=== PATIENT | male | born 1935 | race African-American/Black ===

== ENCOUNTER 2016-07-10 22:46 | Emergency (ER) | payer MEDICARE ==
[2016-07-10 23:41] LABS: ALT (SGPT) 10 U/L (8-55); AST (SGOT) 21 U/L (5-34); Alcohol 364 mg/dL (Less than 10); Alkaline Phosphatase 59 U/L (40-150); Anion Gap 21 mmol/L (10-20); BUN (Urea Nitrogen) 11 mg/dL (8.4-25.7); Bilirubin, Total 0.5 mg/dL (0.2-1.2); CK (CPK) 61 U/L (30-200); Calc. Creatinine Clearance 0 mL/min (70-130); Calcium 8.9 mg/dL (7.8-10.44); Carbon Dioxide 17 mmol/L (23-31); Chloride 110 mmol/L (98-107); Eosinophils 3 % (0-10); Estimated GFR-MDRD 76; Globulin 3.3 g/dL (2.4-3.5); Glucose 78 mg/dL (83-110); Hemoglobin 15.5 g/dL (14.0-18.0); Lymphocytes 69 % (21-51); MDiff Complete? YES; Mean Corpuscular HGB CONC 31.6 g/dL (32.0-36.0); Mean Corpuscular Hemoglobin 31.2 pg (27.0-31.0); Mean Corpuscular Volume 98.5 fl (80.0-94.0); Mean Platelet Volume 6.9 fL (7.4-10.4); Monocytes 6 % (0-10); Neutrophil 21 % (42-75); PLT Morphology Comment Appears Adequate; Platelet Count 160 thou/uL (130-400); Potassium 3.9 mmol/L (3.5-5.1); Protein, Total 7.3 g/dL (5.8-8.1); RBC Distribution Width 14.1 % (11.5-14.5); RBC Morphology Normal; Red Blood Cell (RBC) Count 4.97 mill/uL (4.70-6.10); Sodium 144 mmol/L (136-145)
== END 2016-07-10 23:50 ==
LOC: NAV ERS 22:46
DX: F10.129 Alcohol abuse with intoxication, unspecified (principal); I10 Essential (primary) hypertension; F03.90 Unspecified dementia, unspecified severity, without behavioral disturbance, psychotic disturbance, mood disturbance, and anxiety; F17.210 Nicotine dependence, cigarettes, uncomplicated
CPT/HCPCS: 80053; 80307; 82550; 85025; 99284

== ENCOUNTER 2016-09-29 09:15 | Emergency (ER) | payer MEDICARE ==
[2016-09-29 10:07] LABS: #Basophils 0.1 thou/uL (0.0-0.2); #Eosinphils 0.1 thou/uL (0.0-0.7); #Lymphocytes 1.7 thou/uL (1.20-3.40); #Monocytes 0.4 thou/uL (0.11-0.59); #Neutrophils 1.6 thou/uL (1.40-6.50); %Basophils 1.6 % (0.0-1.0); %Eosinophils 2.2 % (0.0-10.0); %Lymphocytes 43.4 % (21.0-51.0); %Monocytes 10.8 % (0.0-10.0); %Neutrophils 42.1 % (42.0-75.0); Hemoglobin 15.7 g/dL (14.0-18.0); Mean Corpuscular HGB CONC 31.3 g/dL (32.0-36.0); Mean Corpuscular Hemoglobin 30.3 pg (27.0-31.0); Mean Corpuscular Volume 96.8 fl (80.0-94.0); Mean Platelet Volume 6.6 fL (7.4-10.4); Platelet Count 165 thou/uL (130-400); RBC Distribution Width 14.6 % (11.5-14.5); Red Blood Cell (RBC) Count 5.19 mill/uL (4.70-6.10); White Blood Cell (WBC) Count 3.9 thou/uL (4.8-10.8)
[2016-09-29 10:22] LABS: CKMB 1.1 ng/mL (0-6.6); Troponin I 0.014 ng/mL (< 0.028)
[2016-09-29 10:25] LABS: ALT (SGPT) 9 U/L (8-55); AST (SGOT) 16 U/L (5-34); Albumin 3.8 g/dL (3.4-4.8); Alkaline Phosphatase 59 U/L (40-150); Anion Gap 17 mmol/L (10-20); BUN (Urea Nitrogen) 10 mg/dL (8.4-25.7); Bilirubin, Total 1.2 mg/dL (0.2-1.2); Calc. Creatinine Clearance 0 mL/min (70-130); Calcium 9.3 mg/dL (7.8-10.44); Carbon Dioxide 21 mmol/L (23-31); Chloride 106 mmol/L (98-107); Estimated GFR-MDRD 82; Globulin 2.9 g/dL (2.4-3.5); Glucose 101 mg/dL (83-110); Lipase 11 U/L (8-78); Potassium 4.3 mmol/L (3.5-5.1); Protein, Total 6.7 g/dL (5.8-8.1); Sodium 140 mmol/L (136-145)
--- NOTE | 2016-09-29 11:54 | RAD ---
CHEST 1 VIEW: Date: 09/29/16 HISTORY: Chest pain. COMPARISON: 08/11/15. FINDINGS: The cardiac silhouette is magnified by projection. Pulmonary vasculature is unremarkable. Mediastinu m is midline. There is no confluent air space consolidation or evidence of pneumothorax. Cardiac mon itor leads overlie the chest. IMPRESSION: No active cardiopulmonary abnormalities are demonstrated. POS: [facility]
--- NOTE | 2016-09-29 11:56 | CT ---
BRAIN CT WITHOUT IV CONTRAST: Date: 09/29/16 HISTORY: 81-year-old male with vertigo and chest pain which began this morning. Dizziness. Mild headache. COMPARISON: 08/11/15. FINDINGS: Marked atrophy and chronic white matter ischemic changes, which appear stable. No focal mass or midl ine shift. No intra or extra-axial hemorrhage. IMPRESSION: No significant acute findings. Stable from prior study. POS: [facility]
[2016-09-29] MEDS ORDERED: Aspirin 325 MG TAB ONE (12:11)
[2016-09-29] MEDS ORDERED: Nitroglycerin 2% Ointment 1 INCH/1 GM Packet ONE (12:11)
[2016-09-29 12:54] LABS: Bilirubin Negative (Negative); Blood, Urine Trace (Negative); Clarity Clear (Clear); Glucose, Urine (Dipstick) Negative (Negative); Leukocyte Negative (Negative); Nitrite Negative (Negative); Protein, Urine (Dipstick) Negative (Neg-Trace)
[2016-09-29 13:07] LABS: Bacteria/HPF Rare-Few HPF (None Seen); Squamous Epithelial 0-3 HPF (0-3); WBC/HPF 0-3 HPF (0-3)
== END 2016-09-29 12:55 | disposition short-term general hospital (02) ==
LOC: NAV ERS 09:15
DX: R42 Dizziness and giddiness (principal); I10 Essential (primary) hypertension; F03.90 Unspecified dementia, unspecified severity, without behavioral disturbance, psychotic disturbance, mood disturbance, and anxiety; F17.210 Nicotine dependence, cigarettes, uncomplicated
CPT/HCPCS: 70450; 71010; 80053; 81003; 81015; 82140; 82553; 83690; 83735; 83880; 84484; 85025; 85379; 93005; 96360

== ENCOUNTER 2016-10-10 18:07 | Observation (INO) | payer MEDICARE ==
--- NOTE | 2016-10-10 18:49 | RAD ---
PORTABLE SEMIUPRIGHT FRONTAL CHEST RADIOGRAPH 10/10/16 COMPARISON: 09/29/16 HISTORY: Shortness of breath, decreased mental status. FINDINGS: No pneumothorax, pleural effusion, focal consolidation, or alveolar edema. There is prominence and t ortuosity of the descending thoracic aorta. There is a subtle area of asymmetric density along the i nferior aspect of the scapula on the left overlying the posterior aspect of the 8th rib on the left, likely on the basis of scar or volume loss. Recommend followup nonemergent PA and lateral chest franki ging. IMPRESSION: No focal consolidation or alveolar edema. Mild focal opacity in left base for which followup nonemer gent PA and lateral chest imaging advised. Code T POS: [facility]
[2016-10-10 19:35] LABS: #Basophils 0.1 thou/uL (0.0-0.2); #Eosinphils 0.1 thou/uL (0.0-0.7); #Lymphocytes 1.7 thou/uL (1.20-3.40); #Monocytes 0.3 thou/uL (0.11-0.59); %Basophils 1.9 % (0.0-1.0); %Eosinophils 2.7 % (0.0-10.0); %Lymphocytes 53.2 % (21.0-51.0); %Monocytes 10.5 % (0.0-10.0); %Neutrophils 31.7 % (42.0-75.0); Mean Corpuscular HGB CONC 31.4 g/dL (32.0-36.0); Mean Corpuscular Hemoglobin 30.2 pg (27.0-31.0); Mean Corpuscular Volume 96.4 fl (80.0-94.0); Mean Platelet Volume 5.4 fL (7.4-10.4); Platelet Count 82 thou/uL (130-400); RBC Distribution Width 14.5 % (11.5-14.5); Red Blood Cell (RBC) Count 4.29 mill/uL (4.70-6.10); White Blood Cell (WBC) Count 3.2 thou/uL (4.8-10.8)
[2016-10-10 19:36] LABS: ALT (SGPT) 9 U/L (8-55); AST (SGOT) 12 U/L (5-34); Albumin 3.4 g/dL (3.4-4.8); Alcohol 288 mg/dL (Less than 10); Alkaline Phosphatase 45 U/L (40-150); Anion Gap 16 mmol/L (10-20); BUN (Urea Nitrogen) 10 mg/dL (8.4-25.7); Bilirubin, Total 0.5 mg/dL (0.2-1.2); Calc. Creatinine Clearance 0 mL/min (70-130); Calcium 8.1 mg/dL (7.8-10.44); Carbon Dioxide 19 mmol/L (23-31); Chloride 112 mmol/L (98-107); Estimated GFR-MDRD Greater than 90; Globulin 2.7 g/dL (2.4-3.5); Glucose 86 mg/dL (83-110); Potassium 3.4 mmol/L (3.5-5.1); Protein, Total 6.1 g/dL (5.8-8.1); Sodium 144 mmol/L (136-145)
[2016-10-10 19:37] LABS: Troponin I Less than 0.010 ng/mL (< 0.028)
[2016-10-10 19:56] LABS: Bilirubin Negative (Negative); Blood, Urine Trace (Negative); Clarity Clear (Clear); Glucose, Urine (Dipstick) Negative (Negative); Leukocyte Negative (Negative); Nitrite Negative (Negative); Protein, Urine (Dipstick) 30 mg/dL (Neg-Trace); pH, Urine 5.5 (5.0-9.0)
[2016-10-10 20:14] LABS: Amphetamine Not Detected (NotDetected); Barbiturates Screen Not Detected (NotDetected); Benzodiazepine Screen Detected (NotDetected); Cocaine Metabolite Screen Not Detected (NotDetected); Medtox Control Line Valid? VALID (VALID); Methadone Not Detected (NotDetected); Methamphetamine Not Detected (NotDetected); Opiate Screen Not Detected (NotDetected); Oxycodone Screen Not Detected (NotDetected); Phencyclidine (PCP) Not Detected (NotDetected); THC/Cannabinoid Screen Not Detected (NotDetected); Tricyclic Screen Not Detected (NotDetected)
[2016-10-10 20:15] LABS: Specific Gravity, Urine 1.021 (1.002-1.036)
[2016-10-10 20:22] LABS: Crystals/HPF RARE CA OXALATE HPF (Negative); RBC/HPF None Seen HPF (0-3); Squamous Epithelial 0-3 HPF (0-3); WBC/HPF 0-3 HPF (0-3)
[2016-10-10 23:06] VITALS: BMI 22.4
[2016-10-11] MEDS: Lactated Ringer's 1,000 ML IV SCH ×3 (04:04→20:30)
[2016-10-11 06:20] LABS: Alcohol Less than 10 mg/dL (Less than 10); Anion Gap 16 mmol/L (10-20); BUN (Urea Nitrogen) 10 mg/dL (8.4-25.7); Calc. Creatinine Clearance 67 mL/min (70-130); Calcium 8.3 mg/dL (7.8-10.44); Carbon Dioxide 22 mmol/L (23-31); Chloride 108 mmol/L (98-107); Estimated GFR-MDRD Greater than 90; Glucose 85 mg/dL (83-110); Potassium 3.7 mmol/L (3.5-5.1); Sodium 142 mmol/L (136-145)
[2016-10-11] MEDS ORDERED: Acetaminophen 325 MG TAB PO PRN (08:19)
[2016-10-11] MEDS ORDERED: Milk Of Magnesia 30 ML UDCUP PO PRN (08:19)
[2016-10-11] MEDS ORDERED: Lorazepam 1 MG TAB PO SCH (15:45)
[2016-10-12] MEDS: Lactated Ringer's 1,000 ML IV SCH (05:15)
--- NOTE | 2016-10-12 08:48 | HP ---
DATE OF ADMISSION: 10/10/2016 HISTORY OF PRESENT ILLNESS: The patient is an 81-year-old black male that was found on the grass ly ing outside. Ambulance was called. He was difficult to arouse and was brought to the ER for evalua tion. He was evaluated and found to be intoxicated, but apparently lives by himself. He had an alc ohol level of 288 and he had positives for benzodiazepines. Because there was no one to reach, he w as admitted to obs to make sure that he would somewhat sober up and someone can come pick him up. Inessa cevallos also has had some decreased mental status most likely because of benzos and alcohol use. PAST MEDICAL HISTORY: Reveals the patient has a history of hypertension and prostate cancer states he does not take any medicines for either one. PAST SURGICAL HISTORY: Reveals the patient has had an appendectomy many years ago, and a prostatect giles many years ago. The patient states he does not have a primary care doctor, does not really care for one. ALLERGIES: Reveal the patient has no known drug allergies. CURRENT MEDICATIONS: Patient states he does not take medications. FAMILY HISTORY: Reveals patient's father of coronary artery disease and alcohol abuse in his 9 0s. The patient's mother of hypertension, coronary artery disease, and alcohol abuse in her 90 s. Family history is positive for heart problems and alcohol abuse. SOCIAL HISTORY: Reveals patient lives by himself. He has a friend that comes to help him out at [facility] and is someone that watched over his mom when his mom was dying, her name is Deirdre. Noted kristian t he smokes 2 packs per day and has for many, many years. The patient states he drinks every day to a couple of pints usually. He states he is retired, does not remember exactly what he used to do. He was positive for benzodiazepines. Although, he denies using drugs. He is positive for benzodia zepines. REVIEW OF SYSTEMS: Reveal the patient states he has not much of an appetite. He is tired all the t jin. Denies seasonal allergies, states his hearing is good. Vision is not good. He has bilateral cataracts. He has occasional headaches, denies shortness of breath, dyspnea on exertion. Denies wh eezing but when he gets up and moves around, he does wheeze a little bit. Denies any chest pain, de nies claudication, palpitations. Denies any pain radiating to his arms. Denies nausea, vomiting, i ndigestion. Denies diarrhea, constipation, bloody stools. States he gets up once at night to urina te. Denies dysuria, hematuria, incontinence or frequency. He states he has little arthritis in his right knee, other than that he is not bothered with anything, he does not remember if he fell or wh y he lost consciousness or if he was actually conscious. States he remembers he drinks, he bought a fifth of alcohol, not sure what happened to it, if he drank it or if someone else drank it. His me flavia is poor. His concentration is typically pretty good, somewhere in the past, he may have a hist ory of dementia. He states he does not remember if the doctor ever told him that. PHYSICAL EXAMINATION: GENERAL: Reveals a well-developed, well-nourished, thin, black male, in no apparent distress at thi s time. HEENT: Reveals normocephalic, nontraumatic cranium. Pupils are round and reactive. Extraocular mo vements intact. Nose and throat are slightly dry. NECK: Supple, without masses, nodes or bruits. CHEST: Clear to auscultation. No rales, rhonchi, or wheezes are heard. HEART: Reveals a regular rate and rhythm without murmurs, gallops, or rubs. ABDOMEN: Soft, nontender without organomegaly, normal bowel sounds are noted. No rebound or guardi ng is noted. : Deferred. EXTREMITIES: Reveal no clubbing, cyanosis, or edema. NEUROLOGIC: Patient is oriented to person, place, time, and situation at this time. He does not se em depressed, anxious, flat, or agitated. LABORATORY AND X-RAY FINDINGS: Reveal last time when he came to the ER, white count 3.2, hemoglobin 13, hematocrit 41.4, platelet count 82,000. Patient's sodium is 142, potassium 3.4, chloride 102, carbon dioxide 19 with a BUN of 10, creatinine 0.94, GFR is greater than 90. Urinalysis revealed 30 protein, trace blood. Toxicology revealed benzodiazepines detected. Plasma alcohol was 88. This morning chemistry was done, which revealed a sodium 142, potassium 3.7, chloride 108, carbon dioxide 22. All those are improved. Anion gap 16, BUN is 10, creatinine is 0.92, GFR was greater than 90. Sugars 85. Plasma alcohol this morning is less than 10. ASSESSMENT: 1. Acute alcohol intoxication with alcohol level of 288. 2. Possible benzodiazepines. 3. Decreased mental status. 4. Most likely has chronic obstructive pulmonary disease. 5. Alcohol abuse. 6. Generalized weakness. 7. Most likely hypertensive. 8. Mentioned in the previous charts are possible dementia. PLAN: 1. Patient has been hydrated and we gave him thiamine, folic acid, multivitamin. 2. Patient is about 20 hours post-admit. The patient has no real indices for being admitted for fu rther acute care; therefore, the patient will be discharged. 3. I did extensive counseling with the patient on his alcohol abuse and he has benzodiazepines, whi ch he denies and his smoking. I made an illustration that he could save 300 dollars monthly by just stopping smoking and probably another 200-300 dollars by decreasing his alcohol. I recommend that he get a primary care physician that will help him do that. There is [facility] here i n [place] and there is [facility] which is on the loop which will adjust their fees according to t heir income. The patient is ready for discharge.
[2016-10-12 14:12] VITALS: TEMP 98
[2016-10-12 14:13] VITALS: BP 136/64
== END 2016-10-12 13:30 | disposition home or self-care (01) ==
LOC: NAV ERS 18:07 → NAV ACUTE 22:31
PROVIDERS: ADMIT Family Medicine; ATTEND Family Medicine
DX: F10.120 Alcohol abuse with intoxication, uncomplicated (principal); Y90.8 Blood alcohol level of 240 mg/100 ml or more; J44.9 Chronic obstructive pulmonary disease, unspecified; E86.0 Dehydration; I10 Essential (primary) hypertension; F17.210 Nicotine dependence, cigarettes, uncomplicated; Z85.46 Personal history of malignant neoplasm of prostate; F03.90 Unspecified dementia, unspecified severity, without behavioral disturbance, psychotic disturbance, mood disturbance, and anxiety; Z79.899 Other long term (current) drug therapy; R53.1 Weakness
CPT/HCPCS: 36415; 51701; 71010; 80048; 80053; 80306; 80307; 81003; 81015; 82553; 84484; 85025; 93005; 96360; 96361; G0378; J7120; J7620

== ENCOUNTER 2016-12-16 09:39 | Emergency (ER) | payer MEDICARE ==
--- NOTE | 2016-12-16 11:25 | RAD ---
CHEST TWO VIEW: HISTORY: Cough and congestion. COMPARISON: Chest one view from 10/10/2016. FINDINGS: There is mild thickening of the left major fissure. The lungs are slightly hyperinflated. No pneum othorax or effusion. There is a superior endplate compression fracture of the lower thoracic spine, felt likely to be at T11. IMPRESSION: 1. No acute intrathoracic abnormality. 2. Lung hyperinflation suggests obstructive pulmonary disease. POS: [facility]
== END 2016-12-16 11:08 | disposition home or self-care (01) ==
LOC: NAV ERS 09:39
DX: J20.9 Acute bronchitis, unspecified (principal); I10 Essential (primary) hypertension; F03.90 Unspecified dementia, unspecified severity, without behavioral disturbance, psychotic disturbance, mood disturbance, and anxiety; F17.210 Nicotine dependence, cigarettes, uncomplicated
CPT/HCPCS: 71020

== ENCOUNTER 2017-05-03 08:23 | Emergency (ER) | payer MEDICARE ==
--- NOTE | 2017-05-03 09:21 | RAD ---
RIGHT KNEE 4 VIEWS: Date: 05/03/17 HISTORY: Right knee pain. FINDINGS/IMPRESSION: Degenerative changes are present. No fracture, dislocation, or bony destruction identified. There is a joint effusion. POS: [facility]
[2017-05-03 10:03] LABS: Hemoglobin 15.4 g/dL (14.0-18.0); Mean Corpuscular HGB CONC 31.1 g/dL (32.0-36.0); Mean Corpuscular Hemoglobin 29.5 pg (27.0-31.0); Platelet Count 269 thou/uL (130-400); RBC Distribution Width 13.8 % (11.5-14.5); Red Blood Cell (RBC) Count 5.21 mill/uL (4.70-6.10); White Blood Cell (WBC) Count 5.6 thou/uL (4.8-10.8)
[2017-05-03 10:06] LABS: ALT (SGPT) 23 U/L (8-55); AST (SGOT) 38 U/L (5-34); Albumin 3.6 g/dL (3.4-4.8); Alkaline Phosphatase 56 U/L (40-150); Anion Gap 18 mmol/L (10-20); BUN (Urea Nitrogen) 17 mg/dL (8.4-25.7); Calc. Creatinine Clearance 0 mL/min (70-130); Calcium 10.5 mg/dL (7.8-10.44); Carbon Dioxide 26 mmol/L (23-31); Chloride 102 mmol/L (98-107); Estimated GFR-MDRD 73; Globulin 4.5 g/dL (2.4-3.5); Glucose 113 mg/dL (83-110); Potassium 4.2 mmol/L (3.5-5.1); Protein, Total 8.1 g/dL (5.8-8.1); Sodium 142 mmol/L (136-145); Uric Acid 7.3 mg/dL (3.5-7.2)
[2017-05-03 10:14] LABS: Band 1 % (5-11); Lymphocytes 21 % (21-51); MDiff Complete? YES; Monocytes 8 % (0-10); Neutrophil 69 % (42-75); PLT Morphology Comment Appears Adequate; RBC Morphology Normal
[2017-05-03 10:32] LABS: Bilirubin Small (Negative); Blood, Urine Moderate (Negative); Clarity Clear (Clear); Glucose, Urine (Dipstick) Negative (Negative); Leukocyte Trace (Negative); Nitrite Positive (Negative); Protein, Urine (Dipstick) 30 mg/dL (Neg-Trace); Specific Gravity, Urine 1.025 (1.005-1.030); pH, Urine 5.5 (5.0-9.0)
[2017-05-03 10:46] LABS: Bacteria/HPF Rare-Few HPF (None Seen); RBC/HPF 0-3 HPF (0-3); Squamous Epithelial 0-3 HPF (0-3)
[2017-05-03 18:31] LABS: BF Color Yellow; Body Fluid Source SYNOVIAL FLUID; Clarity Cloudy/Turbid (Clear); Tube # 1
[2017-05-03 18:32] LABS: RBC Count-Automated 40000 /cumm; WBC/NonHematic-Auto 32800 /cumm
[2017-05-03 18:45] LABS: Synovial Fluid, Protein 4.2 g/dL (Not Available); Synovial Fluid, Uric Acid 7.7 mg/dL (Not Available)
[2017-05-03 18:59] LABS: BF Segmented Neutrophils 97 %; Cell Count Non Hematic 3 %
== END 2017-05-03 11:28 | disposition short-term general hospital (02) ==
LOC: NAV ERS 08:23
DX: M13.161 Monoarthritis, not elsewhere classified, right knee (principal); G89.29 Other chronic pain; I10 Essential (primary) hypertension; F03.90 Unspecified dementia, unspecified severity, without behavioral disturbance, psychotic disturbance, mood disturbance, and anxiety; F17.210 Nicotine dependence, cigarettes, uncomplicated
CPT/HCPCS: 20610; 36415; 80053; 81003; 81015; 82945; 83615; 84157; 84550; 84560; 85025; 85060; 87040; 87070; 87205; 89051; 89060

== ENCOUNTER 2017-09-24 16:22 | Emergency (ER) | payer MEDICARE ==
[~2017-09-24 16:22] MED LIST: Iopamidol 370 76% 100 ML VIAL ONE
[2017-09-24] MEDS ORDERED: Albuterol Sulfate 2.5 mg/3 ml Neb ONE (16:59)
[2017-09-24 17:20] LABS: #Basophils 0.1 thou/uL (0.0-0.2); #Eosinphils 0.1 thou/uL (0.0-0.7); #Lymphocytes 2.2 thou/uL (1.20-3.40); #Monocytes 0.4 thou/uL (0.11-0.59); #Neutrophils 1.1 thou/uL (1.40-6.50); %Basophils 1.5 % (0.0-1.0); %Eosinophils 3.2 % (0.0-10.0); %Lymphocytes 56.6 % (21.0-51.0); %Monocytes 10.3 % (0.0-10.0); %Neutrophils 28.4 % (42.0-75.0); Hemoglobin 15.4 g/dL (14.0-18.0); Mean Corpuscular HGB CONC 30.5 g/dL (32.0-36.0); Mean Corpuscular Hemoglobin 28.1 pg (27.0-31.0); Mean Corpuscular Volume 92.1 fL (78.0-98.0); Mean Platelet Volume 6.8 fL (7.4-10.4); Platelet Count 217 thou/uL (130-400); RBC Distribution Width 13.6 % (11.5-14.5); Red Blood Cell (RBC) Count 5.46 mill/uL (4.70-6.10); White Blood Cell (WBC) Count 3.9 thou/uL (4.8-10.8)
--- NOTE | 2017-09-24 17:21 | RAD ---
SINGLE VIEW OF THE CHEST: 09/24/17 COMPARISON: 10/10/16 HISTORY: Shortness of breath that began two to three days ago. FINDINGS: Single view of the chest shows a normal sized cardiomediastinal silhouette. There is no evidence of c onsolidation, mass, or pleural effusion. The bones are unremarkable. IMPRESSION: No evidence of acute cardiopulmonary disease. POS: [facility]
[2017-09-24 17:24] LABS: ALT (SGPT) 8 U/L (8-55); AST (SGOT) 13 U/L (5-34); Albumin 3.9 g/dL (3.4-4.8); Alkaline Phosphatase 61 U/L (40-150); Anion Gap 19 mmol/L (10-20); BUN (Urea Nitrogen) 12 mg/dL (8.4-25.7); Bilirubin, Total 0.5 mg/dL (0.2-1.2); Calc. Creatinine Clearance 0 mL/min (70-130); Calcium 9.3 mg/dL (7.8-10.44); Carbon Dioxide 19 mmol/L (23-31); Chloride 107 mmol/L (98-107); Estimated GFR-MDRD 81; Globulin 2.8 g/dL (2.4-3.5); Glucose 87 mg/dL (83-110); Potassium 3.7 mmol/L (3.5-5.1); Protein, Total 6.7 g/dL (5.8-8.1); Sodium 141 mmol/L (136-145)
[2017-09-24 17:25] LABS: CKMB 0.7 ng/mL (0-6.6); Troponin I Less than 0.010 ng/mL (< 0.028)
[2017-09-24] MEDS ORDERED: predniSONE 20 MG TAB ONE (19:25)
--- NOTE | 2017-09-24 19:45 | CT ---
CT ANGIOGRAM THORAX WITH IV CONTRAST AND 3D RECONSTRUCTIONS: 09/24/17 HISTORY: Dyspnea and shortness of breath which started two to three days ago. COMPARISON: None available. FINDINGS: There are no filling defects seen in the pulmonary arteries to suggest a pulmonary embolus. Vascular calcifications are seen in the coronary arteries and at the aortic arch. The thoracic aorta is normal in caliber without evidence of an aortic dissection. Mediastinal structures have a normal CT appearance. There is mass-like prominence of the posterior as pect right lung apex with multiple linear densities also seen. this finding was also seen on prior CT cervical spine in [address] thoracic spine in 2013, is likely related to prominent asymme tric pleural and parenchymal scarring given stability over this period of time. The lungs are otherwise clear. No discrete pulmonary nodule, mass or pleural effusion is seen. There are several loops of bowel seen anterior and lateral to the right hepatic lobe as well as anterior to the dome of the liver. A subcentimeter too small to characterize hypodense lesion is seen in the lat eral segment of the left hepatic lobe. Degenerative changes are seen in the spine. IMPRESSION: 1. No CT evidence of a pulmonary embolus. 2. Asymmetric pleural and parenchymal scarring right lung apex. POS: [facility]
== END 2017-09-24 19:43 | disposition home or self-care (01) ==
LOC: NAV ERS 16:22
DX: J44.1 Chronic obstructive pulmonary disease with (acute) exacerbation (principal); R07.89 Other chest pain; F03.90 Unspecified dementia, unspecified severity, without behavioral disturbance, psychotic disturbance, mood disturbance, and anxiety; I10 Essential (primary) hypertension; F17.210 Nicotine dependence, cigarettes, uncomplicated
CPT/HCPCS: 71045; 71275; 80053; 82553; 83735; 83880; 84484; 85025; 85379; 93005; 94640; 94760; J7506; J7611

== ENCOUNTER 2017-11-11 10:32 | Emergency (ER) | payer MEDICARE ==
[2017-11-11] MEDS ORDERED: Acetaminophen 500 MG TAB ONE (11:43)
--- NOTE | 2017-11-11 11:57 | RAD ---
RIGHT RIBS 2 VIEWS CHEST 1 VIEW: Date: 11/11/17 HISTORY: 82-year-old male with history of right rib injury following a fall 2 weeks ago. FINDINGS: Views of the right ribs and chest 1 view demonstrates no evidence for acute rib fracture. There is so me respiratory motion artifact. No pneumothorax or pleural effusion. IMPRESSION: No pneumothorax or pleural effusion. No overt acute rib fracture. POS: [facility]
== END 2017-11-11 11:53 | disposition home or self-care (01) ==
LOC: NAV ERS 10:32
DX: S20.211A Contusion of right front wall of thorax, initial encounter (principal); I10 Essential (primary) hypertension; F17.210 Nicotine dependence, cigarettes, uncomplicated; F03.90 Unspecified dementia, unspecified severity, without behavioral disturbance, psychotic disturbance, mood disturbance, and anxiety; Z85.46 Personal history of malignant neoplasm of prostate; W18.30XA Fall on same level, unspecified, initial encounter
CPT/HCPCS: 93005

== ENCOUNTER 2018-12-01 16:15 | Emergency (ER) | payer MEDICARE ==
--- NOTE | 2018-12-01 17:03 | RAD ---
SINGLE VIEW OF THE CHEST: 12/01/18 COMPARISON: 09/24/17 HISTORY: Chest pain and dizziness for one hour. FINDINGS: Single view of the chest shows a normal sized cardiomediastinal silhouette. There is no evidence of c onsolidation, mass, or pleural effusion. The bones are unremarkable. IMPRESSION: No evidence of acute cardiopulmonary disease. POS: [facility]
[2018-12-01 17:06] LABS: ALT (SGPT) 14 U/L (8-55); AST (SGOT) 14 U/L (5-34); Albumin 4.5 g/dL (3.4-4.8); Alkaline Phosphatase 64 U/L (40-110); Anion Gap 18 mmol/L (10-20); BUN (Urea Nitrogen) 17 mg/dL (8.4-25.7); Bilirubin, Total 0.5 mg/dL (0.2-1.2); CK (CPK) 21 U/L (30-200); Calc. Creatinine Clearance 0 mL/min (70-130); Calcium 9.8 mg/dL (7.8-10.44); Carbon Dioxide 23 mmol/L (23-31); Chloride 106 mmol/L (98-107); Estimated GFR-MDRD 60; Globulin 3.2 g/dL (2.4-3.5); Glucose 85 mg/dL (83-110); Potassium 3.8 mmol/L (3.5-5.1); Protein, Total 7.7 g/dL (5.8-8.1); Sodium 143 mmol/L (136-145)
[2018-12-01 17:17] LABS: Eosinophils 2 % (0-10); Hemoglobin 16.2 g/dL (14.0-18.0); Lymphocytes 65 % (21-51); MDiff Complete? YES; Mean Corpuscular HGB CONC 30.2 g/dL (32.0-36.0); Mean Corpuscular Hemoglobin 27.4 pg (27.0-31.0); Mean Corpuscular Volume 90.8 fL (78.0-98.0); Mean Platelet Volume 6.4 fL (7.4-10.4); Monocytes 3 % (0-10); Neutrophil 30 % (42-75); Platelet Count 184 thou/uL (130-400); Platelet Morphology Comment Appears Adequate; RBC Distribution Width 14.6 % (11.5-14.5); RBC Morphology Normal; Red Blood Cell (RBC) Count 5.89 mill/uL (4.70-6.10); White Blood Cell (WBC) Count 4.6 thou/uL (4.8-10.8)
[2018-12-01] MEDS ORDERED: Aspirin Chewable 81 MG TAB ONE (18:47)
== END 2018-12-01 19:33 | disposition short-term general hospital (02) ==
LOC: NAV ERS 16:15
DX: R07.9 Chest pain, unspecified (principal); F10.129 Alcohol abuse with intoxication, unspecified; F03.90 Unspecified dementia, unspecified severity, without behavioral disturbance, psychotic disturbance, mood disturbance, and anxiety; I10 Essential (primary) hypertension; F17.210 Nicotine dependence, cigarettes, uncomplicated; Z85.46 Personal history of malignant neoplasm of prostate
CPT/HCPCS: 71045; 80053; 80307; 82550; 83880; 84484; 85025; 93005; J7620

== ENCOUNTER 2019-05-08 10:39 | Emergency (ER) | payer MEDICARE ==
--- NOTE | 2019-05-08 11:53 | RAD ---
LUMBAR SPINE 3 VIEWS: Date: 05/08/2019 HISTORY: Back pain. No comparison available. FINDINGS: There is mild compression of the L1 vertebra with superior end plate compression and mild anterior we dging. Posterior height is preserved. Posterior alignment is maintained. The other lumbar vertebra maintain height and alignment. There is loss of disc space at L5-S1. Degene rative changes are noted with facet hypertrophy. IMPRESSION: Mild compression deformity at L1 which is age-indeterminate. POS: [facility]
--- NOTE | 2019-05-08 12:31 | CT ---
CT Lumbar Spine WO Con History: Pain Comparison: Radiograph same day Findings: The aortic contour is nonaneurysmal. No retroperitoneal periaortic adenopathy. No hydroneph rosis. Incomplete burst fracture L1 with fracture involving the anterior and posterior margins of the verteb ral body with 20% anterior height loss. There is sclerosis of the superior endplate. No significant retropulsion. There is small volume hemorrhage around the fracture in the anterior and lateral parasp inal soft tissues indicating relative acuity. Remainder the lumbar spine is without acute fracture. Advanced degenerative disc space height loss at L5/S1 with moderate facet arthrosis and 3 mm anterolisthesis. Impression: Relatively acute-appearing L1 incomplete burst compression deformity with approximately 2 0% anterior height loss.
[2019-05-08] MEDS ORDERED: Acetaminophen/Codeine 30-300mg Tablet ONE (12:57)
== END 2019-05-08 13:06 | disposition home or self-care (01) ==
LOC: NAV ERS 10:39
DX: S32.019A Unspecified fracture of first lumbar vertebra, initial encounter for closed fracture (principal); F03.90 Unspecified dementia, unspecified severity, without behavioral disturbance, psychotic disturbance, mood disturbance, and anxiety; I10 Essential (primary) hypertension; F17.210 Nicotine dependence, cigarettes, uncomplicated; W06.XXXA Fall from bed, initial encounter
CPT/HCPCS: 72100; 72131

== ENCOUNTER 2020-07-21 22:00 | Emergency (ER) | payer MEDICARE ==
[2020-07-21 22:42] LABS: Hemoglobin 14.9 g/dL (14.0-18.0); Mean Corpuscular HGB CONC 28.7 g/dL (32.0-36.0); Mean Corpuscular Hemoglobin 25.9 pg (27.0-31.0); Mean Corpuscular Volume 90.3 fL (78.0-98.0); Mean Platelet Volume 7.7 fL (7.4-10.4); Platelet Count 184 thou/uL (130-400); RBC Distribution Width 14.9 % (11.5-14.5); Red Blood Cell (RBC) Count 5.74 mill/uL (4.70-6.10); White Blood Cell (WBC) Count 4.1 thou/uL (4.8-10.8)
[2020-07-21 22:45] LABS: #Basophils 0.1 thou/uL (0.0-0.2); #Eosinphils 0.1 thou/uL (0.0-0.7); #Lymphocytes 1.9 thou/uL (1.20-3.40); #Monocytes 0.3 thou/uL (0.11-0.59); #Neutrophils 1.6 thou/uL (1.40-6.50); %Basophils 1.2 % (0.0-1.0); %Eosinophils 2.8 % (0.0-10.0); %Lymphocytes 47.3 % (21.0-51.0); %Monocytes 8.3 % (0.0-10.0); %Neutrophils 40.4 % (42.0-75.0); Platelet Morphology Comment Appears Adequate; RBC Morphology Normal
[2020-07-21 22:53] LABS: AST (SGOT) 12 U/L (5-34); Albumin 4.1 g/dL (3.4-4.8); Alkaline Phosphatase 72 U/L (40-110); Anion Gap 14 mmol/L (10-20); BUN (Urea Nitrogen) 20 mg/dL (8.4-25.7); Bilirubin, Total 0.6 mg/dL (0.2-1.2); Calc. Creatinine Clearance 0 mL/min (70-130); Calcium 9.1 mg/dL (7.8-10.44); Carbon Dioxide 25 mmol/L (23-31); Chloride 106 mmol/L (98-107); Globulin 3.5 g/dL (2.4-3.5); Glucose 105 mg/dL (83-110); Potassium 4.3 mmol/L (3.5-5.1); Protein, Total 7.6 g/dL (5.8-8.1); Sodium 141 mmol/L (136-145)
[2020-07-21 22:54] LABS: ALT (SGPT) 11 U/L (8-55); Lipase 24 U/L (8-78)
[2020-07-22] MEDS ORDERED: Aspirin Chewable 81 MG TAB ONE (00:50)
== END 2020-07-22 02:04 | disposition short-term general hospital (02) ==
LOC: NAV ERS 22:00
DX: R07.81 Pleurodynia (principal); I10 Essential (primary) hypertension; Z87.891 Personal history of nicotine dependence
CPT/HCPCS: 71045; 80053; 83690; 83880; 84484; 85025; 85379; 93005; J7620

== ENCOUNTER 2021-03-25 17:35 | Emergency (ER) | payer MEDICARE ==
[2021-03-25 18:37] LABS: ALT (SGPT) 9 U/L (8-55); AST (SGOT) 13 U/L (5-34); Albumin 3.3 g/dL (3.4-4.8); Alkaline Phosphatase 38 U/L (40-110); Anion Gap 13 mmol/L (10-20); BUN (Urea Nitrogen) 16 mg/dL (8.4-25.7); Bilirubin, Total 0.5 mg/dL (0.2-1.2); Calc. Creatinine Clearance 0 mL/min (70-130); Calcium 7.9 mg/dL (7.8-10.44); Carbon Dioxide 19 mmol/L (23-31); Chloride 110 mmol/L (98-107); Globulin 2.5 g/dL (2.4-3.5); Glucose 125 mg/dL (83-110); Potassium 3.4 mmol/L (3.5-5.1); Protein, Total 5.8 g/dL (5.8-8.1); Sodium 139 mmol/L (136-145)
[2021-03-25 18:38] LABS: Troponin I Less than 0.010 ng/mL (< 0.028)
[2021-03-25 18:40] LABS: #Lymphocytes 1.4 thou/uL (1.20-3.40); #Monocytes 0.6 thou/uL (0.11-0.59); #Neutrophils 3.9 thou/uL (1.40-6.50); %Basophils 0.7 % (0.0-1.0); %Lymphocytes 23.8 % (21.0-51.0); %Monocytes 9.7 % (0.0-10.0); %Neutrophils 65.7 % (42.0-75.0); Hemoglobin 11.9 g/dL (14.0-18.0); Mean Corpuscular HGB CONC 30.4 g/dL (32.0-36.0); Mean Corpuscular Hemoglobin 26.3 pg (27.0-31.0); Mean Corpuscular Volume 86.6 fL (78.0-98.0); Mean Platelet Volume 7.2 fL (7.4-10.4); Platelet Count 118 thou/uL (130-400); Red Blood Cell (RBC) Count 4.54 mill/uL (4.70-6.10); White Blood Cell (WBC) Count 5.9 thou/uL (4.8-10.8)
[2021-03-25] MEDS ORDERED: Sodium Chloride 0.9% 500 ML ONE (18:52)
[2021-03-25 20:23] LABS: Bilirubin Negative (Negative); Blood, Urine Trace (Negative); Glucose, Urine (Dipstick) Negative (Negative); Ketone, Urine Negative (Negative); Leukocyte Negative (Negative); Nitrite Negative (Negative); Protein, Urine (Dipstick) 30 mg/dL (Neg-Trace); Urobilinogen 0.2 mg/dL (Less than 2)
[2021-03-25 20:27] LABS: Clarity SL HAZY (Clear)
[2021-03-25 20:33] LABS: RBC/HPF 0-3 HPF (0-3); Specific Gravity, Urine 1.023 (1.002-1.036)
[2021-03-25 21:20] LABS: Lactic Acid 1.5 mmol/L (0.5-2.2)
[2021-03-26 16:22] LABS: SARS-CoV-2 PCR by NAA DETECTED (NotDetected)
== END 2021-03-25 21:30 | disposition home or self-care (01) ==
LOC: NAV ERS 17:35
DX: U07.1 COVID-19 (principal); I10 Essential (primary) hypertension; F17.210 Nicotine dependence, cigarettes, uncomplicated; W19.XXXA Unspecified fall, initial encounter
CPT/HCPCS: 70450; 71045; 72125; 74176; 80053; 83605; 83880; 84484; 85025; 85379; 87804 ×2; 93005; U0003; U0005; 51701; 81003; 81015; J7030

== ENCOUNTER 2021-11-22 09:58 | Emergency (ER) | payer MEDICARE, OTHER ==
[2021-11-22 11:10] LABS: Hemoglobin 12.9 g/dL (14.0-18.0); Mean Corpuscular HGB CONC 28.9 g/dL (32.0-36.0); Mean Corpuscular Hemoglobin 25.3 pg (27.0-31.0); Mean Corpuscular Volume 87.3 fL (78.0-98.0); Mean Platelet Volume 7.5 fL (7.4-10.4); Platelet Count 186 thou/uL (130-400); RBC Distribution Width 16.2 % (11.5-14.5); Red Blood Cell (RBC) Count 5.11 mill/uL (4.70-6.10); White Blood Cell (WBC) Count 4.1 thou/uL (4.8-10.8)
[2021-11-22 11:11] LABS: MDiff Complete? YES
[2021-11-22 11:12] LABS: Eosinophils 1 % (0-10); Lymphocytes 44 % (21-51); Monocytes 5 % (0-10); Neutrophil 50 % (42-75); Platelet Morphology Comment Appears Adequate
[2021-11-22 11:48] LABS: ALT (SGPT) 10 U/L (8-55); AST (SGOT) 12 U/L (5-34); Albumin 4.2 g/dL (3.4-4.8); Alkaline Phosphatase 56 U/L (40-110); Anion Gap 16 mmol/L (10-20); BUN (Urea Nitrogen) 17 mg/dL (8.4-25.7); Bilirubin, Total 0.7 mg/dL (0.2-1.2); Calc. Creatinine Clearance 0 mL/min (70-130); Calcium 9.3 mg/dL (7.8-10.44); Carbon Dioxide 22 mmol/L (23-31); Chloride 110 mmol/L (98-107); Estimated GFR 51; Glucose 98 mg/dL (83-110); Lipase 14 U/L (8-78); Potassium 4.2 mmol/L (3.5-5.1); Protein, Total 7.2 g/dL (5.8-8.1); Sodium 144 mmol/L (136-145)
[2021-11-22 11:50] LABS: Bilirubin Negative (Negative); Blood, Urine Negative (Negative); Clarity Clear (Clear); Glucose, Urine (Dipstick) Negative (Negative); Ketone, Urine Negative (Negative); Leukocyte Negative (Negative); Nitrite Negative (Negative); Protein, Urine (Dipstick) Negative (Neg-Trace); Specific Gravity, Urine 1.025 (1.005-1.030); Urobilinogen 0.2 mg/dL (Less than 2)
== END 2021-11-22 13:20 | disposition home or self-care (01) ==
LOC: NAV ERS 09:58
DX: R10.32 Left lower quadrant pain (principal); J44.9 Chronic obstructive pulmonary disease, unspecified; Z87.891 Personal history of nicotine dependence; W19.XXXA Unspecified fall, initial encounter
CPT/HCPCS: 70450; 74176; 80053; 81003; 83690; 85025

== ENCOUNTER 2023-08-20 15:09 | Emergency (ER) | payer OTHER ==
[2023-08-20] MEDS ORDERED: Ipratropium/Albuterol 3 ML NEB ONE (15:30)
[2023-08-20 15:44] LABS: Troponin I Less than 0.010 ng/mL (< 0.028)
[2023-08-20 15:46] LABS: %Basophils 0.8 % (0.0-1.0); %Eosinophils 3.2 % (0.0-10.0); %Lymphocytes 56.3 % (21.0-51.0); %Monocytes 8.7 % (0.0-10.0); %Neutrophils 31.1 % (42.0-75.0); Hematocrit 40.7 % (42.0-52.0); Hemoglobin 12.1 g/dL (14.0-18.0); Manual Diff?? NO; Mean Corpuscular HGB CONC 29.7 g/dL (32.0-36.0); Mean Corpuscular Hemoglobin 25.1 pg (27.0-31.0); Mean Corpuscular Volume 84.6 fl (78.0-98.0); Mean Platelet Volume 6.2 fL (7.4-10.4); Platelet Count 163 10x3/uL (130-400); RBC Distribution Width 15.3 % (11.5-14.5); White Blood Cell (WBC) Count 3.6 10x3/uL (4.8-10.8)
[2023-08-20 15:47] LABS: #Eosinphils 0.1 thou/uL (0.0-0.7); #Monocytes 0.3 thou/uL (0.11-0.59); #Neutrophils 1.1 thou/uL (1.40-6.50)
[2023-08-20 15:48] LABS: ALT (SGPT) 8 U/L (8-55); AST (SGOT) 11 U/L (5-34); Albumin 3.7 g/dL (3.4-4.8); Alkaline Phosphatase 58 U/L (40-110); Anion Gap 12 mmol/L (10-20); BUN (Urea Nitrogen) 17 mg/dL (8.4-25.7); Bilirubin, Total 0.6 mg/dL (0.2-1.2); Calc. Creatinine Clearance 0 mL/min (70-130); Carbon Dioxide 25 mmol/L (23-31); Chloride 108 mmol/L (98-107); Estimated GFR 50; Globulin 2.6 g/dL (2.4-3.5); Glucose 107 mg/dL (83-110); Protein, Total 6.3 g/dL (5.8-8.1); Sodium 141 mmol/L (136-145)
[2023-08-20 16:08] LABS: Influenza A by NAA Not Detected (NotDetected); Influenza B by NAA Not Detected (NotDetected); SARS-CoV-2 NAA Rapid Test Not Detected (NotDetected)
== END 2023-08-20 17:02 | disposition home or self-care (01) ==
LOC: NAV ERS 15:09
DX: J44.9 Chronic obstructive pulmonary disease, unspecified (principal); M79.10 Myalgia, unspecified site; Z79.899 Other long term (current) drug therapy; Z87.891 Personal history of nicotine dependence
CPT/HCPCS: 71045; 80053; 83880; 84484; 85025; 93005; 94760; J7620

== ENCOUNTER 2023-09-03 11:47 | Outpatient (CLI) | payer OTHER | END 2023-09-03 11:48 | disposition home or self-care (01) | LOC: NAV RAD 11:47 | PROVIDERS: ATTEND Family Medicine | DX: R07.81 Pleurodynia (principal); J43.9 Emphysema, unspecified; K63.89 Other specified diseases of intestine; W19.XXXA Unspecified fall, initial encounter ==